=== PATIENT | male | born 1950 | race Hispanic/Latino ===

== ENCOUNTER 2018-09-05 10:21 | Outpatient (CLI) | payer BC ==
[2018-09-05 11:38] LABS: Hemoglobin 15.1 g/dL (14.0-18.0); Mean Corpuscular HGB CONC 32.9 g/dL (32.0-36.0); Mean Corpuscular Hemoglobin 30.2 pg (27.0-31.0); Mean Corpuscular Volume 91.9 fL (78.0-98.0); Mean Platelet Volume 8.2 fL (7.4-10.4); Platelet Count 204 thou/uL (130-400); RBC Distribution Width 11.7 % (11.5-14.5); Red Blood Cell (RBC) Count 5.01 mill/uL (4.70-6.10); White Blood Cell (WBC) Count 7.7 thou/uL (4.8-10.8)
[2018-09-05 11:42] LABS: Bacteria/HPF None Seen HPF (None Seen); Bilirubin Negative (Negative); Blood, Urine Negative (Negative); Clarity Clear (Clear); Glucose, Urine (Dipstick) Normal (Negative); Leukocyte Negative Leu/uL (Negative); Nitrite Negative (Negative); Protein, Urine (Dipstick) Negative (Neg-Trace); RBC/HPF 0-3 HPF (0-3); Squamous Epithelial 0-3 HPF (0-3); Urobilinogen Normal mg/dL (Less than 2); WBC/HPF 0-3 HPF (0-3)
[2018-09-05 11:45] LABS: INR-International Normal Ratio 1.1; PTT 34.1 SEC (22.9-36.1); Prothrombin Time 14.4 SEC (12.0-14.7)
[2018-09-05 12:00] LABS: Anion Gap 12 mmol/L (10-20); BUN (Urea Nitrogen) 18 mg/dL (8.4-25.7); Calc. Creatinine Clearance 0 mL/min (70-130); Calcium 10.5 mg/dL (7.8-10.44); Carbon Dioxide 26 mmol/L (23-31); Chloride 104 mmol/L (98-107); Estimated GFR-MDRD 64; Glucose 87 mg/dL (80-115); Sodium 137 mmol/L (136-145)
--- NOTE | 2018-09-05 12:28 | EKG ---
Test Reason : Blood Pressure : / mmHG Vent. Rate : 053 BPM Atrial Rate : 053 BPM P-R Int : 126 ms QRS Dur : 082 ms QT Int : 398 ms P-R-T Axes : 033 -01 004 degrees QTc Int : 373 ms Sinus bradycardia short OK interval When compared with ECG of 22-NOV-2015 15:52, Premature ventricular complexes are no longer Present Confirmed by DR. Eliza IRAHETA ([id number]) on 09/05/2018 12:27:56 PM Referred By: JAMES Confirmed By:DR. Eliza IRAHETA
== END 2018-09-05 10:22 | disposition home or self-care (01) ==
LOC: LABBT 10:21
PROVIDERS: ATTEND Urology
DX: Z01.818 Encounter for other preprocedural examination (principal); N40.1 Benign prostatic hyperplasia with lower urinary tract symptoms; R35.0 Frequency of micturition; N52.9 Male erectile dysfunction, unspecified; R97.20 Elevated prostate specific antigen [PSA]
CPT/HCPCS: 80048; 81001; 85027; 85610; 85730; 87086; 93005; 93010

== ENCOUNTER 2018-09-14 05:54 | Observation (INO) | payer BC, MEDICARE ==
[2018-09-05 10:54] VITALS: BMI 38.4
[2018-09-14] MEDS ORDERED: Levofloxacin 500 mg/D5W 100 ml Premix Bag ONE (06:54)
[2018-09-14] MEDS ORDERED: Fentanyl 100 MCG/2 ML VIAL ONE ×2 (07:18)
[2018-09-14] MEDS ORDERED: Phenazopyridine HCl 97.5 MG TABLET PO PRN (09:03)
[2018-09-14] MEDS ORDERED: Oxybutynin 5 MG TAB PO PRN (09:03)
[2018-09-14] MEDS ORDERED: hydrALAZINE 20 MG/ML VIAL SLOW IVP PRN (09:03)
[2018-09-14] MEDS ORDERED: Hyoscyamine Sulfate SL 0.125 mg Tablet SL PRN (09:03)
[2018-09-14] MEDS ORDERED: Ondansetron PF 4 MG/2 ML Vial IVP PRN (09:03)
[2018-09-14] MEDS ORDERED: Bisacodyl 10 MG SUPP PR PRN (09:03)
[2018-09-14] MEDS ORDERED: Mag-Al 1200 mg/1200 mg/30 ML UDCUP PO PRN (09:03)
[2018-09-14] MEDS ORDERED: diphenhydrAMINE 25 MG CAP PO PRN (09:03)
[2018-09-14] MEDS ORDERED: Acetaminophen 500 MG TAB PO PRN (09:03)
[2018-09-14] MEDS ORDERED: traMADol HCl 50 MG TAB PO PRN (09:05)
[2018-09-14] MEDS ORDERED: Ondansetron HCl/PF 4 MG/2 ML Vial IVP PRN (09:10)
[2018-09-14] MEDS ORDERED: Promethazine HCl 25 MG/ML VIAL IM PRN (09:10)
[2018-09-14] MEDS ORDERED: Promethazine HCl 25 MG/ML VIAL SLOW IVP PRN (09:10)
[2018-09-14] MEDS ORDERED: Morphine 2 MG/ML SYRINGE SLOW IVP PRN (10:34)
[2018-09-14] MEDS ORDERED: Docusate 100 MG CAP PO SCH (11:00)
[2018-09-14] MEDS ORDERED: Lisinopril 10 MG TAB PO SCH (11:00)
--- NOTE | 2018-09-14 15:15 | OP ---
DATE OF PROCEDURE: 09/14/2018 SERVICE: Urology. PREOPERATIVE DIAGNOSIS: Benign prostatic hyperplasia with urinary obstruction. POSTOPERATIVE DIAGNOSIS: Benign prostatic hyperplasia with urinary obstruction. PROCEDURE PERFORMED: Transurethral vaporization of the prostate. INDICATION FOR PROCEDURE: Mr. Xiao is a 68-year-old male, who came to see me for urinary complaints. He is on Flomax and finasteride, but continues to have significant urinary problems. We discussed transurethral vaporization of the prostate with risks and benefits, and he has agreed to proceed forward. DESCRIPTION OF PROCEDURE: After identification of armband and verification of consent, the patient was brought back to the operating room, where he underwent general anesthesia with LMA. He was then placed in a dorsal lithotomy position and prepped and draped in usual sterile fashion. After appropriate time-out, a lubricated 26-[place] resectoscope sheath with obturator was placed through the urethra into the bladder. The obturator was removed and the bipolar wide plasma vaporization button was brought in. Vaporization was started at the bladder neck and resected on the lateral lobes first to the verumontanum. Circumferentially for the anterior, posterior, and lateral lobes until there was a wide-open channel, relaxing incisions were made at 5 and 7 o'clock to widen the bladder neck and the intervening tissue vaporized. Upon completion, there was complete vaporization of almost all the prostate tissue. There was a small rim of prostate left before the capsule. The resection was not taken past the verumontanum and both ureters were in the orthotopic location and unharmed at the end of the case. Meticulous hemostasis was performed and the prostatic fossa reinspected after the bladder had been drained. There was no significant bleeding. The bladder was refilled and the resectoscope was removed. A 22-[place] three-way Christianson catheter was placed into the patient's bladder with 30 mL of sterile water in the balloon. CBI was initiated. The patient was then taken out of lithotomy, had a StatLock affixed, awakened and taken to PACU for recovery in stable condition. COMPLICATIONS: None. ESTIMATED BLOOD LOSS: Minimal. RETAINED TUBES AND DRAINS: 22-[place] three-way Christianson catheter on CBI. SPECIMENS: None. DISPOSITION: The patient will be kept in the hospital overnight for CBI and be discharged in the morning pending a void trial. Job ID: [id number]
[2018-09-14] MEDS ORDERED: Lidocaine 1% PF 5 ML VIAL ONE (15:39)
[2018-09-14] MEDS ORDERED: PROPOFOL 200 MG/20 ML VIAL ONE (15:39)
[2018-09-14] MEDS ORDERED: Dexamethasone 20 MG/5 ML VIAL ONE (15:39)
[2018-09-14] MEDS ORDERED: Ondansetron PF 4 MG/2 ML Vial ONE (15:39)
[2018-09-14] MEDS ORDERED: ePHEDrine 50 MG/ML VIAL ONE (15:39)
[2018-09-14] MEDS: Docusate 100 MG CAP PO SCH (19:44)
[2018-09-14] MEDS ORDERED: Rosuvastatin 20 MG TAB PO SCH (21:00)
[2018-09-15 07:11] LABS: #Lymphocytes 1.2 thou/uL (1.20-3.40); #Monocytes 0.7 thou/uL (0.11-0.59); #Neutrophils 10.9 thou/uL (1.40-6.50); %Basophils 0.4 % (0.0-1.0); %Eosinophils 0.1 % (0.0-10.0); %Lymphocytes 9.3 % (21.0-51.0); %Monocytes 5.5 % (0.0-10.0); %Neutrophils 84.6 % (42.0-75.0); Hemoglobin 13.8 g/dL (14.0-18.0); Mean Corpuscular HGB CONC 32.9 g/dL (32.0-36.0); Mean Corpuscular Hemoglobin 29.9 pg (27.0-31.0); Mean Corpuscular Volume 90.9 fL (78.0-98.0); Platelet Count 188 thou/uL (130-400); RBC Distribution Width 11.8 % (11.5-14.5); Red Blood Cell (RBC) Count 4.62 mill/uL (4.70-6.10); White Blood Cell (WBC) Count 12.9 thou/uL (4.8-10.8)
[2018-09-15 07:32] LABS: Anion Gap 9 mmol/L (10-20); BUN (Urea Nitrogen) 16 mg/dL (8.4-25.7); Calc. Creatinine Clearance 95 mL/min (70-130); Carbon Dioxide 26 mmol/L (23-31); Chloride 106 mmol/L (98-107); Estimated GFR-MDRD 70; Glucose 107 mg/dL (80-115); Potassium 4.4 mmol/L (3.5-5.1); Sodium 137 mmol/L (136-145)
[2018-09-15] MEDS: Docusate 100 MG CAP PO SCH (07:59)
[2018-09-15] MEDS ORDERED: Lisinopril 10 MG TAB PO SCH (09:00)
[2018-09-15 11:37] VITALS: BP 110/68; TEMP 97.1
== END 2018-09-15 14:05 | disposition home or self-care (01) ==
LOC: SDC 05:54 → SURG B 09:41
PROVIDERS: ADMIT Urology; ATTEND Urology
PROC: 0V508ZZ Destruction of Prostate, Via Natural or Artificial Opening Endoscopic (ICD-10-PCS; principal; 2018-09-14)
DX: N40.1 Benign prostatic hyperplasia with lower urinary tract symptoms (principal); N13.8 Other obstructive and reflux uropathy; I10 Essential (primary) hypertension; G47.33 Obstructive sleep apnea (adult) (pediatric); M10.9 Gout, unspecified; Z79.899 Other long term (current) drug therapy; Z88.5 Allergy status to narcotic agent
CPT/HCPCS: 36415; 80048; 85025; G0378; J1100; J1956; J2001; J2405; J2704; J3010; J3490

== ENCOUNTER 2018-09-24 07:52 | Outpatient (CLI) | payer BC ==
--- NOTE | 2018-09-24 10:47 | ULT ---
BILATERAL CAROTID DUPLEX ULTRASOUND: HISTORY: Carotid stenosis. TECHNIQUE: Simon scale ultrasound with color flow and spectral Doppler imaging of the extracranial carotid artery systems performed bilaterally. There is plaque formation on either side, right greater than left. The peak systolic velocity in the right ICA measures 321 cm/s with an end-diastolic velocity of 100 c m/s and a systolic ratio of 3.82. The peak systolic velocity in the left ICA measures 66 cm/s with an end-diastolic velocity of 23 cm/s and a systolic ratio of 1.29. Flow in both vertebral arteries remains antegrade. IMPRESSION: Severe (greater than 70%) stenosis involving the right internal carotid artery. POS: [facility]
== END 2018-09-24 07:53 | disposition home or self-care (01) ==
LOC: SCSULT 07:52
PROVIDERS: ATTEND Family Medicine
DX: I65.21 Occlusion and stenosis of right carotid artery (principal)
CPT/HCPCS: 93880

== ENCOUNTER 2018-10-05 14:07 | Outpatient (CLI) | payer BC, MEDICARE ==
[~2018-10-05 14:07] MED LIST: Iopamidol 370 76% 100 ML VIAL ONE
--- NOTE | 2018-10-05 16:00 | CT ---
CTA NECK: Axial tomograms were obtained through the neck following angio protocol with multiplanar reconstructi ons and 3D post processing. INDICATION: Carotid occlusions and stenosis. COMPARISON: Comparison is made to prior CTA neck dated 02/24/2016. FINDINGS: No significant stenosis is seen at the origin of the arch vessels. Right common carotid shows mild atherosclerotic change without stenosis. There is atherosclerotic calcification and soft plaque at the origin of the right internal carotid ar janette which produces near occlusion. There is a tiny ICA lumen seen extending from this focal area of atherosclerotic change. The tiny left internal carotid artery is patent to the skull base and intra cranial internal carotid artery is opacified bilaterally. There is luminal narrowing with a bead-lik e appearance involving the siphon of the right ICA in the precavernous portion. This is a stable fin ding. Cavernous ICAs appear relatively symmetric. The left common carotid artery shows mild atherosclerotic soft plaque with luminal narrowing distally . There is a focal area of stenosis in the distal common carotid with luminal narrowing estimated at approximately 50% diameter which would be hemodynamically significant. This does appear stable. The left bulb and ICA appear unremarkable with no left ICA stenosis identified. There is a dominant left vertebral which is a stable finding. IMPRESSION: 1. Near occlusion of the right internal carotid artery at its origin. A string sign is seen with a tiny internal carotid artery extending from this area of atherosclerosis to the skull base. This tin y right internal carotid artery appears stable from prior exam. 2. There is stenosis in the distal left common carotid which has a focal area of stenosis estimated at 50% diameter. This appears stable. There are postoperative changes in the left carotid bulb with widely patent left bulb and left internal carotid artery which appears stable. POS: TPC
== END 2018-10-05 14:08 | disposition home or self-care (01) ==
LOC: SCSCT 14:07
PROVIDERS: ATTEND Thoracic Surgery (Cardiothoracic Vascular Surgery)
DX: I65.23 Occlusion and stenosis of bilateral carotid arteries (principal); Z98.890 Other specified postprocedural states
CPT/HCPCS: 70498; 82565